=== PATIENT | male | born 1960 | race Caucasian/White ===

== ENCOUNTER → 2018-09-01 12:11 | Outpatient (CLI) | payer BC, SELFPAY ==
[2018-09-01 13:00] LABS: Add Manual Diff / Slide Review NO; Basophils Absolute Auto 0 /uL (0-100); Basophils Percent Auto 0.4 % (0-2); Eosinophils Absolute Auto 0 /uL (0-450); Eosinophils Percent Auto 0.9 % (2-4); Hematocrit 43.2 % (41-53); Hemoglobin 14.7 g/dL (13.5-17.5); Lymphocytes Absolute Auto 1200 /uL (1100-4500); Lymphocytes Percent Auto 25.1 % (25-40); Mean Corpuscular HGB Conc 34.1 % (30-36); Mean Corpuscular Hemoglobin 32.2 PG (26-34); Mean Corpuscular Volume 94.5 fL (80-100); Monocytes Absolute Auto 500 /uL (0-900); Neutrophils Absolute Auto 2900 /uL (1500-7000); Neutrophils Percent Auto 62.6 % (50-75); Platelet Count 201 X10^3/uL (150-400); Red Blood Cell Count 4.57 X10^6/uL (4.5-5.9); Red Cell Distribution Width 13.1 % (11.6-14.8); White Blood Cell Count 4.6 X10^3/uL (4.5-11.0)
[2018-09-01 13:18] LABS: Alanine Aminotransferase 35 IU/L (21-72); Albumin 4.5 g/dL (3.5-5.0); Albumin Globulin Ratio 1.6 (1.0-2.8); Alkaline Phosphatase 55 U/L (38-126); Aspartate Aminotransferase 46 IU/L (17-59); BUN Creatinine Ratio 16.3 (6-22); Bilirubin Total 0.7 mg/dL (0.2-1.3); Blood Urea Nitrogen 13 mg/dL (9-20); Calcium 9.7 mg/dL (8.4-10.2); Carbon Dioxide 25 mmol/L (22-32); Chloride 102 mmol/L (98-107); Cholesterol 264 mg/dL (140-199); Estimated Glomerular Filt Rate > 60.0 mL/min (>60); Globulin 2.9 g/dL (1.7-4.1); Glucose 97 mg/dL (80-110); HDL Cholesterol 66 mg/dL (40-60); HEMOLYSIS < 15 (0-50); LDL Cholesterol Calculated 182 mg/dL (<100); Potassium 4.5 mmol/L (3.4-5.1); Sodium 136 mmol/L (137-145); Total Protein 7.4 g/dL (6.3-8.2); Triglycerides 82 mg/dL (35-150)
[2018-09-01 13:34] LABS: Appearance Urine UA CLEAR; Bilirubin Urine UA NEGATIVE (NEGATIVE); Color Urine UA YELLOW; Glucose Urine UA NEGATIVE (Negative); Ketones Urine UA NEGATIVE (NEGATIVE); Leukocyte Esterase Urine UA NEGATIVE (NEGATIVE); Nitrite Urine UA NEGATIVE (Negative); Occult Blood Urine UA NEGATIVE (Negative); Protein Urine UA NEGATIVE (Negative); Urobilinogen Urine UA 0.2 E.U./dL (0.2); pH Urine UA 7.5 (4.5-8.0)
[2018-09-01 13:49] LABS: Thyroid Stimulating Hormone 2.44 uIU/mL (0.47-4.68)
== END ==
PROVIDERS: PCP Family Medicine; Visit Provider Family Medicine
DX: Z13.220 Encounter for screening for lipoid disorders (principal); Z13.29 Encounter for screening for other suspected endocrine disorder; Z51.81 Encounter for therapeutic drug level monitoring
CPT/HCPCS: 36415; 80053; 80061; 81003; 84153; 84443; 85025

== ENCOUNTER 2018-10-25 12:53 | Day surgery (SDC) | payer BC, SELFPAY ==
--- NOTE | 2018-10-25 | PATH_ITS ---
[facility] Accession Number: [id number] . 01 Material submitted: . PART A: colon - ASCENDING COLON POLYP X3 PART B: rectum - RECTAL POLYP . 02 Diagnosis: A. Ascending Colon, Polyps x3, Biopsies: Tubular adenoma in three of seven fragments. . B. Rectum, Polyp, Biopsy: Tubular adenoma. V/10/27/2018 . 02 Electronically signed: . Jazmyne Rose MD, Pathologist NPI- [id number] . 01 Gross description: . Part A: ASCENDING COLON POLYP X3: Received in formalin are multiple fragment(s) of russell, soft tissue measuring 0.1 x 0.1 x 0.1 cm to 0.5 x 0.3 x 0.3 cm which is entirely submitted and submitted entirely in 1 cassette(s). Part B: RECTAL POLYP: Received in formalin is 1 fragment(s) of russell, soft tissue measuring 0.3 x 0.3 x 0.2 cm which is entirely submitted and submitted entirely in 1 cassette(s) /DM /DM . 02 Pathologist provided ICD-10: D12.2, D12.8 . 02 CPT . 958739, 286233 Performed at: 01 [facility] [address] [facility], [place], [place] [id number] MD Braxton Mcdonald MD Phone: [phone] Performed at: 02 [facility] [address] [place], [place] [id number] MD Jazmyne Rose MD Phone: [phone]
--- NOTE | 2018-10-25 09:24 | P.HP_ITS ---
History of Present Illness Date Patient Seen: 10/25/18 Chief complaint: [id number] Narrative: 58-year-old male here for colon polyp surveillance. Last colonoscopy was performed in 2013 at [facility]. He currently has no active GI issues Patient History Family & Social History Tobacco & Substance use: Smoking Status Former smoker Meds Home Medications Medication Instructions Recorded Confirmed Type No Known Home Medications 10/25/18 10/25/18 History Allergies Allergy/AdvReac Type Severity Reaction Status Date / Time No Known Drug Allergies Allergy Verified 09/04/18 09:50 Review of Systems Review of Systems All systems reviewed & are unremarkable except as noted in HPI and below Exam Narrative Exam Narrative: General: Patient is well developed, not in apparent distress Cardiovascular: Regular rate and rhythm, no murmurs, rubs, or gallops; no evide nce of edema; no palpable abdominal aortic aneurysm Gastrointestinal: Normoactive bowel sounds, soft, nontender, nondistended, no rebound tenderness, no hepatosplenomegaly, no evidence of hernia Assessment & Plan Assessment & Plan narrative: 58-year-old male here for colon polyp surveillance Regarding the procedure(s), the risks and potential complications, benefits, and alternatives (including not doing the procedure) were discussed with the patient. The risks include but are not limited to bleeding, splenic injury, i nfection, perforation which may require surgical intervention, missed lesions, and adverse reactions to sedative medicines. After a question and answer period, the patient agreed to proceed with the procedure(s) and gives informed consent.
[2018-10-25 14:01] VITALS: BP 154/88; PULSE 77; RESP 16; TEMP 36.7; O2SAT 98; BMI 22.7
[2018-10-25] MEDS: SODIUM CHLORIDE 0.9% 1,000 ML 70 ML IV (14:20)
[2018-10-25] MEDS: MIDAZOLAM 5 MG/5 ML VIAL IV (14:46)
[2018-10-25] MEDS: fentaNYL 250 MCG/5 ML INJ IV (14:46)
--- NOTE | 2018-10-25 15:03 | P.OP.ENDO_ITS ---
Operative Date/Time/Diagnoses Date of procedure: 10/25/18 Procedure Notes Procedure in detail: Surgeon: Jeovanny [place] MD Procedure: Colonoscopy with polypectomy Preoperative diagnosis: Colon polyp surveillance Postoperative diagnosis: Colon polyps x4 status post polypectomy; divertic ulosis; grade 2 internal hemorrhoids Medications: Conscious sedation using 2 mg IV of Midazolam and 100 mcg IV of Fentanyl Preanesthesia Assessment An H and P was performed/updated and the Px?s ASA class is 1. The procedure was discussed in detail with the patient. The potential risks and complications including infection, bleeding, missed lesions, perforation, need for surgery in case of perforation, prolonged hospital stay, and were explained. A brief question and answer period was allotted and once all questions were answered, informed consent was obtained. The patient was brought back to the procedure room and placed on standard monitoring. The patient?s vital signs were monitored continuously throughout the entire procedure. Prior to starting, a timeout was performed to confirm the patient?s identity, allergies, medications, and procedure. Procedure in detail The patient was placed in left lateral decubitus position and once adequate sedation was obtained a DYANA was performed. The digital rectal examination did not reveal any palpable lesions. The tip of the colonoscope was placed in the anal canal and advanced without difficulty all the way to the cecum which was identified by the appendiceal orifice and the ileocecal valve. Careful examination of all chapa of the colon was performed with irrigation of any residual stool. In the ascending colon there was note of 3 sessile polyps measuring 2-3 mm in size. These were removed by means of cold Jumbo forceps. Resection and retrieval was complete with minimal bleeding. There was note of scattered medium-sized diverticula in the ascending colon and transverse colon. There was note of multiple medium-size diverticula in the sigmoid colon. In the rectum, there was note of a 2 mm sessile polyp which was removed by means of cold Jumbo forceps. Resection and retrieval was complete with minimal bleeding. Retroflexion was performed in the rectum which revealed grade 2 internal hemorrhoids. The patient tolerated the procedure well and will be brought back to the recovery area to be discharged once criteria are met. The prep was judged to be good and adequate to identify polyps less than 5 mm. The withdrawal time was 9 minutes. The total physician intraservice time was 15 minutes. Complications There were no complications and estimated blood loss was minimal. Recommendations: Resume previous diet Follow up pathology results Repeat colonoscopy in 3 or 5 years depending on pathology results An emergency contact number was given to the patient for any complications related to the procedure
[2018-10-25 15:10] VITALS: BP 127/78; PULSE 69; RESP 16; TEMP 36.8; O2SAT 98
== END 2018-10-25 15:30 | disposition home or self-care (01) ==
PROVIDERS: PCP Family Medicine; Visit Provider Internal Medicine Gastroenterology
PROC: 0DJD8ZZ Inspection of Lower Intestinal Tract, Via Natural or Artificial Opening Endoscopic (ICD-10-PCS; CPT 45378; principal; 2018-10-25 14:30)
DX: Z86.010 Personal history of colon polyps (principal); K57.30 Diverticulosis of large intestine without perforation or abscess without bleeding; K64.1 Second degree hemorrhoids; D12.2 Benign neoplasm of ascending colon; D12.8 Benign neoplasm of rectum
CPT/HCPCS: 45380; J2250; J3010

== ENCOUNTER → 2019-04-24 12:48 | Outpatient (CLI) | payer BC, SELFPAY ==
[2019-04-24 13:52] LABS: Prostate Specific Antigen 3.56 ng/mL (0.10-4.00)
== END ==
PROVIDERS: PCP Family Medicine; Visit Provider Family Medicine
DX: R97.20 Elevated prostate specific antigen [PSA] (principal)
CPT/HCPCS: 36415; 84153

== ENCOUNTER → 2019-08-20 12:58 | Outpatient (CLI) | payer BC, SELFPAY ==
[2019-08-20 13:41] LABS: Cholesterol 255 mg/dL (140-199); Glucose 84 mg/dL (80-110); HDL Cholesterol 51 mg/dL (40-60); LDL Cholesterol Calculated 184 mg/dL (<100); Triglycerides 102 mg/dL (35-150)
[2019-08-20 14:11] LABS: Prostate Specific Antigen 4.39 ng/mL (0.10-4.00)
== END ==
PROVIDERS: PCP Family Medicine; Referring Provider Family Medicine; Visit Provider Family Medicine
DX: Z13.1 Encounter for screening for diabetes mellitus (principal); Z13.220 Encounter for screening for lipoid disorders; C61 Malignant neoplasm of prostate
CPT/HCPCS: 36415; 80061; 82947; 84153

== ENCOUNTER → 2019-10-09 06:56 | Outpatient (CLI) | payer BC, SELFPAY ==
[2019-10-09 09:34] LABS: Prostate Specific Antigen 3.96 ng/mL (0.10-4.00)
== END ==
PROVIDERS: PCP Family Medicine; Referring Provider Student in an Organized Health Care Education/Training Program; Visit Provider Student in an Organized Health Care Education/Training Program
DX: C61 Malignant neoplasm of prostate (principal); R97.20 Elevated prostate specific antigen [PSA]
CPT/HCPCS: 36415; 84153

== ENCOUNTER → 2020-02-01 07:56 | Outpatient (CLI) | payer BC, SELFPAY ==
[2020-02-01 09:05] LABS: Cholesterol 188 mg/dL (140-199); HDL Cholesterol 67 mg/dL (40-60); LDL Cholesterol Calculated 96 mg/dL (<100); Triglycerides 125 mg/dL (35-150)
[2020-02-01 09:31] LABS: Prostate Specific Antigen 3.93 ng/mL (0.10-4.00)
== END ==
PROVIDERS: PCP Family Medicine; Referring Provider Urology; Visit Provider Urology
DX: C61 Malignant neoplasm of prostate (principal); E78.5 Hyperlipidemia, unspecified
CPT/HCPCS: 36415; 80061; 84153

== ENCOUNTER 2020-05-01 17:46 | Emergency (ER) | payer BC, SELFPAY ==
[2020-05-01 17:55] VITALS: BP 129/75; PULSE 93; RESP 17; TEMP 36.6; O2SAT 96; BMI 21.1
[2020-05-01] MEDS: LIDOCAINE 2% (UROJET) 5 ML GEL TOP (18:11)
--- NOTE | 2020-05-01 18:19 | ED_ITS ---
HPI - Male Genitourinary General Chief complaint: Urogenital-Male Stated complaint: catheter removed, has retention now Time Seen by Provider: 05/01/20 17:53 Source: patient Mode of arrival: Ambulatory Limitations: no limitations History of Present Illness HPI Narrative: 60-year-old male former smoker with a history of prostate cancer presents with his in the chief complaint inability to urinate over the cour se of the day. He recently had a radical prostatectomy and his Pope catheter was removed in the urology office earlier today. Over the course of the day he has developed inability to urinate and presents with suprapubic tenderness. He has had no fever chills and denies any nausea, vomiting or back pain. He is otherwise well and free of complaint MD Complaint: other Onset (ago): hour(s) Duration: constant Location: abdomen (suprapubic) Severity: moderate Relieving factors: urination Exacerbating factors: none Context: recent surgery Associated symptoms: Reports denies other symptoms Related Data Home Medications Medication Instructions Recorded Confirmed No Known Home Medications 10/25/18 11/09/19 Allergies Allergy/AdvReac Type Severity Reaction Status Date / Time No Known Drug Allergies Allergy Verified 05/01/20 18:04 Review of Systems Constitutional Constitutional: Denies chills, Denies fatigue, Denies fever(s), Denies frequent falls, Denies lethargy and Denies weakness Eyes Eyes: Denies change in vision, Denies eye discharge, Denies irritation and Denies loss of vision ENT Ears, Nose, Mouth, and Throat: Denies change in voice, Denies dizziness, Denies neck pain, Denies sore throat and Denies throat swelling Cardiovascular Cardiovascular: Denies chest pain, Denies irregular heart rhythm, Denies lightheadedness, Denies palpitations, Denies dyspnea, Denies dyspnea on exertion and Denies orthopnea Respiratory Respiratory: Denies cough, Denies dyspnea, Denies dyspnea on exertion and Denies wheezing Gastrointestinal Gastrointestinal: Denies abdominal pain, Denies change in bowel habits, Denies diarrhea, Denies nausea and Denies vomiting Genitourinary Genitourinary: Reports oliguria Musculoskeletal Musculoskeletal: Denies neck pain and Denies numbness Integumentary/Breasts Skin/Breast: Denies pruritus, Denies erythema, Denies rash and Denies wounds Neurologic Neurologic: Denies behavioral changes, Denies confusion, Denies dizziness, Denies frequent falls, Denies loss of vision, Denies numbness and Denies weakness Psychiatric Psychiatric: Denies anxiety, Denies behavioral changes, Denies confusion, Denies depression, Denies homicidal ideation and Denies suicidal ideation Endocrine Endocrine: Denies fatigue, Denies flushing and Denies palpitations Hematologic/Lymphatic Hematologic/Lymphatic: Denies easy bruising Allergic/Immunologic Allergic/Immunologic: Denies urticaria, Denies throat swelling and Denies wheezing Patient History Surgical History Status post hernia repair Family History Mother Alzheimer's dementia Grandmother Alzheimer's dementia Social History household members: spouse Smoking Status: Former smoker Smoking Status: Former smoker alcohol intake frequency: holidays/special occasions only Substance Use Type: does not use Exam Narrative Exam Narrative: GEN: AOx3 and in mild distress EYES: Pupils are equal, round, and reactive to light and accommodation. Extraoccular muscles are intact bilaterally. There is no subconjunctival hemorrhage or exudate. CHEST: Lungs are clear to auscultation bilaterally and free of wheezes, rales, or rhonchi. Heart rate is regular rhythm, there are no murmurs, clicks, rubs, or gallops. There is no chest wall tenderness. ABD: Abdomen is soft and mildly tender in the suprapubic region.. There is no guarding or rebound. Bowel sounds are normal in all 4 quadrants. There is no mass or organomegaly. EXT: Full painless ROM of all extremities with no loss of sensation or strength. SKIN: Warm, pink, and dry. No erythema or rash Initial Vital Signs Initial Vital Signs: Vital Signs Temperature 97.8 F 05/01/20 17:55 Pulse Rate 93 H 05/01/20 17:55 Respiratory Rate 17 05/01/20 17:55 Blood Pressure 129/75 05/01/20 17:55 Pulse Oximetry 96 05/01/20 17:55 Course Course Course Narrative: Pope catheter placed by nursing and patient has production of yellow urine and and near immediate, and complete resolution of symptoms Orders Ordered: Discontinued Medications Lidocaine HCl (Lidocaine 2% (Urojet) 5 Ml Gel) 5 ml TOP NOW ONE Stop: 05/01/20 18:07 Last Admin: 05/01/20 18:11 Dose: 5 ml Documented by: CLAUDIA Vital Signs Vital signs: Vital Signs - 8 hr 05/01/20 17:55 05/01/20 18:49 Temperature 97.8 F Pulse Rate 93 H 81 Respiratory Rate 17 18 Blood Pressure 129/75 108/68 Pulse Oximetry 96 97 Discharge Plan Departure Patient Disposition: Home Clinical Impression: Acute retention of urine Instructions: DI for Urinary Retention in Men Activity Restrictions/Additional Instructions: *You have been diagnosed with [acute urinary retention] *What to do: * continue to take medications as directed *Follow up with your urologist, call them in the morning to establish follow-up appointment *Return to ER if you should have any new, worsening or concerning symptoms, such as [pain, fever > 101F, worsening symptoms, or other bothersome symptoms] Prescriptions: No Action No Known Home Medications RF: 0 Referrals: Michelle Foley MD [Primary Care Provider] -
[2020-05-01 18:49] VITALS: BP 108/68; PULSE 81; RESP 18; O2SAT 97
== END 2020-05-01 18:50 | disposition home or self-care (01) ==
PROVIDERS: Emergency Provider Emergency Medicine; PCP Family Medicine
DX: R33.8 Other retention of urine (principal); C61 Malignant neoplasm of prostate
CPT/HCPCS: 51798; 99283

== ENCOUNTER 2020-05-07 18:12 | Emergency (ER) | payer BC, SELFPAY ==
[2020-05-07 18:22] VITALS: BP 133/76; PULSE 96; RESP 17; TEMP 36.3; O2SAT 98; BMI 21.1
[2020-05-07] MEDS: LIDOCAINE 2% (UROJET) 5 ML GEL TOP (19:07)
--- NOTE | 2020-05-07 19:38 | ED_ITS ---
HPI - General Adult General Chief complaint: Abdominal Pain Stated complaint: urinary retention Time Seen by Provider: 05/07/20 19:10 Source: patient Mode of arrival: Ambulatory Limitations: no limitations History of Present Illness HPI narrative: Patient is a 60-year-old male who 2 weeks ago underwent a prostate removal. Subsequently had urinary retention requiring a Pope catheter. The catheter was removed and subsequently had another episode of urinary retention requiring a another catheter. The catheter was removed this morning by his urologist. Patient was able to urinate 2 times today without problems but then started having problems with urinating and abdominal distension. Related Data Home Medications Medication Instructions Recorded Confirmed ciprofloxacin HCl [Cipro] 500 mg PO BID 05/07/20 05/07/20 Allergies Allergy/AdvReac Type Severity Reaction Status Date / Time No Known Drug Allergies Allergy Verified 05/07/20 18:30 Review of Systems Constitutional Constitutional: Denies fever(s) Gastrointestinal Gastrointestinal: Reports abdominal pain Genitourinary Genitourinary: Reports oliguria and Reports difficulty urinating Integumentary/Breasts Skin/Breast: Denies rash Hematologic/Lymphatic Hematologic/Lymphatic: Denies easy bleeding and Denies easy bruising Patient History Surgical History Status post hernia repair Family History Mother Alzheimer's dementia Grandmother Alzheimer's dementia Social History household members: spouse Smoking Status: Former smoker Smoking Status: Former smoker alcohol intake frequency: holidays/special occasions only Substance Use Type: does not use Exam Initial Vital Signs Initial Vital Signs: Vital Signs Temperature 97.4 F L 05/07/20 18:22 Pulse Rate 96 H 05/07/20 18:22 Respiratory Rate 17 05/07/20 18:22 Blood Pressure 133/76 05/07/20 18:22 Pulse Oximetry 98 05/07/20 18:22 Const General: cooperative and healthy appearing Resp Effort & Inspection: normal respiratory effort Cardio Rate: regular rate Other: Pope catheter in place Neuro General: patient alert and patient awake Extrem General: normal to inspection Psych Appearance: grossly normal and well kempt Course Orders Ordered: Discontinued Medications Lidocaine HCl (Lidocaine 2% (Urojet) 5 Ml Gel) 5 ml TOP NOW ONE Stop: 05/07/20 19:06 Last Admin: 05/07/20 19:07 Dose: 5 ml Documented by: VIKI Vital Signs Vital signs: Vital Signs - 8 hr 05/07/20 18:22 05/07/20 20:01 Temperature 97.4 F L Pulse Rate 96 H 100 H Respiratory Rate 17 16 Blood Pressure 133/76 108/74 Pulse Oximetry 98 96 Medical Decision Making MDM Narrative Medical decision making narrative: Patient had a bladder scan and Pope catheter placed prior to my evaluation. Had approximately 1 L of urine help after the catheter was replaced without problems. Plan will be is to discharge him home with a catheter in place and having contact his urologist tomorrow for follow- up. He was given return precautions. He expressed understanding and agreement. Discharge Plan Departure Patient Disposition: Home Clinical Impression: Acute urinary retention Instructions: How to Care for Your Pope Catheter -- Male Activity Restrictions/Additional Instructions: Recommend that tomorrow you contact your urologist for a follow-up. Return to the emergency department for any new or worsening symptoms Prescriptions: No Action ciprofloxacin HCl [Cipro] 500 mg Tablet 500 mg PO BID RF: 0 Referrals: Michelle Foley MD [Primary Care Provider] -
[2020-05-07 20:01] VITALS: BP 108/74; PULSE 100; RESP 16; O2SAT 96
== END 2020-05-07 20:02 | disposition home or self-care (01) ==
PROVIDERS: Emergency Provider Emergency Medicine; PCP Family Medicine
DX: R33.8 Other retention of urine (principal); Z90.79 Acquired absence of other genital organ(s)
CPT/HCPCS: 51701; 51798; 99282; 99283

== ENCOUNTER → 2020-06-09 09:54 | Outpatient (CLI) | payer BC, SELFPAY ==
[2020-06-09 11:45] LABS: Prostate Specific Antigen < 0.064 ng/mL (0.10-4.00)
== END ==
PROVIDERS: PCP Family Medicine; Referring Provider Student in an Organized Health Care Education/Training Program; Visit Provider Student in an Organized Health Care Education/Training Program
DX: C61 Malignant neoplasm of prostate (principal)
CPT/HCPCS: 36415; 84153

== ENCOUNTER → 2020-08-27 07:58 | Outpatient (CLI) | payer OTHER, SELFPAY ==
[2020-08-27] MEDS: COVID-19 VACC #1, MRNA(MOD) 100 MCG/0.5 ML VIAL IM (08:13)
== END ==
PROVIDERS: PCP Family Medicine; Visit Provider Internal Medicine
DX: Z23 Encounter for immunization (principal)
CPT/HCPCS: 0011A; 91301

== ENCOUNTER → 2020-09-24 10:57 | Outpatient (CLI) | payer OTHER, SELFPAY ==
[2020-09-24] MEDS: COVID-19 VACC #2, MRNA(MOD) 100 MCG/0.5 ML VIAL IM (11:04)
== END ==
PROVIDERS: PCP Family Medicine; Visit Provider Internal Medicine
DX: Z23 Encounter for immunization (principal)
CPT/HCPCS: 0012A; 91301

== ENCOUNTER → 2020-09-24 11:13 | Outpatient (CLI) | payer OTHER, SELFPAY ==
[2020-09-24 12:59] LABS: Prostate Specific Antigen < 0.064 ng/mL (0.10-4.00)
== END ==
PROVIDERS: PCP Family Medicine; Referring Provider Student in an Organized Health Care Education/Training Program; Visit Provider Student in an Organized Health Care Education/Training Program
DX: C61 Malignant neoplasm of prostate (principal)
CPT/HCPCS: 36415; 84153

== ENCOUNTER → 2021-09-02 11:02 | Outpatient (CLI) | payer OTHER, SELFPAY ==
[2021-09-02 12:16] LABS: Cholesterol 308 mg/dL (140-199); HDL Cholesterol 49 mg/dL (40-60); LDL Cholesterol Calculated 233 mg/dL (<100); Triglycerides 129 mg/dL (35-150)
[2021-09-02 12:47] LABS: Prostate Specific Antigen < 0.064 ng/mL (0.10-4.00)
== END ==
PROVIDERS: PCP Family Medicine; Referring Provider Family Medicine; Visit Provider Family Medicine
DX: C61 Malignant neoplasm of prostate (principal); E78.5 Hyperlipidemia, unspecified
CPT/HCPCS: 36415; 80061; 84153

== ENCOUNTER → 2022-09-20 10:05 | Outpatient (CLI) | payer OTHER, SELFPAY ==
[2022-09-20 10:57] LABS: Cholesterol 242 mg/dL (140-199); Glucose 83 mg/dL (80-110); HDL Cholesterol 53 mg/dL (40-60); LDL Cholesterol Calculated 174 mg/dL (<100); Triglycerides 73 mg/dL (35-150)
== END ==
PROVIDERS: PCP Family Medicine; Referring Provider Family Medicine; Visit Provider Family Medicine
DX: E78.5 Hyperlipidemia, unspecified (principal); Z00.00 Encounter for general adult medical examination without abnormal findings; Z79.899 Other long term (current) drug therapy
CPT/HCPCS: 36415; 80061; 82947

== ENCOUNTER → 2023-04-18 11:06 | Outpatient (CLI) | payer MEDICARE, SELFPAY ==
[2023-04-18 12:33] LABS: Prostate Specific Antigen 0.124 ng/mL (0.10-4.00)
== END ==
PROVIDERS: PCP Family Medicine; Referring Provider Family Medicine; Visit Provider Family Medicine
DX: C61 Malignant neoplasm of prostate (principal)
CPT/HCPCS: 36415; 84153

== ENCOUNTER → 2023-05-20 08:50 | Outpatient (CLI) | payer MEDICARE, SELFPAY ==
[2023-05-20 10:57] LABS: Prostate Specific Antigen 0.162 ng/mL (0.10-4.00)
== END ==
PROVIDERS: PCP Family Medicine; Referring Provider Family Medicine; Visit Provider Family Medicine
DX: C61 Malignant neoplasm of prostate (principal)
CPT/HCPCS: 36415; 84153

== ENCOUNTER → 2023-08-03 09:19 | Outpatient (CLI) | payer MEDICARE, SELFPAY ==
[2023-08-03 11:00] LABS: Add Manual Diff / Slide Review NO; Basophils Absolute Auto 0 /uL (0-100); Basophils Percent Auto 0.7 % (0-2); Eosinophils Absolute Auto 100 /uL (0-450); Eosinophils Percent Auto 2.8 % (2-4); Hematocrit 43.6 % (41-53); Hemoglobin 15.1 g/dL (13.5-17.5); Lymphocytes Absolute Auto 1500 /uL (1100-4500); Lymphocytes Percent Auto 28.6 % (25-40); Mean Corpuscular HGB Conc 34.6 % (30-36); Mean Corpuscular Hemoglobin 31.8 PG (26-34); Mean Corpuscular Volume 91.7 fL (80-100); Monocytes Absolute Auto 500 /uL (0-900); Monocytes Percent Auto 10.1 % (3-14); Neutrophils Absolute Auto 3000 /uL (1500-7000); Neutrophils Percent Auto 57.8 % (50-75); Platelet Count 213 X10^3/uL (150-400); Red Blood Cell Count 4.75 X10^6/uL (4.5-5.9); White Blood Cell Count 5.2 X10^3/uL (4.5-11.0)
[2023-08-03 11:43] LABS: Cholesterol 269 mg/dL (140-199); HDL Cholesterol 34 mg/dL (40-60); LDL Cholesterol Calculated 183 mg/dL (<100); Triglycerides 262 mg/dL (35-150)
[2023-08-03 11:43] LABS: Alanine Aminotransferase 21 IU/L (<50); Albumin Globulin Ratio 1.4 (1.0-2.8); Alkaline Phosphatase 62 U/L (38-126); Aspartate Aminotransferase 34 IU/L (17-59); BUN Creatinine Ratio 14.8 (6-22); Bilirubin Total 0.7 mg/dL (0.2-1.3); Blood Urea Nitrogen 13 mg/dL (9-20); Calcium 9.1 mg/dL (8.4-10.2); Carbon Dioxide 25 mmol/L (22-32); Chloride 109 mmol/L (98-107); Estimated Glomerular Filt Rate > 60 mL/min (>60); Globulin 2.9 g/dL (1.7-4.1); Glucose 103 mg/dL (80-110); HEMOLYSIS < 15 (0-50); Potassium 4.4 mmol/L (3.4-5.1); Sodium 139 mmol/L (137-145); Total Protein 6.9 g/dL (6.3-8.2)
[2023-08-04 14:09] LABS: PSA Ultrasensitive 0.115 ng/mL (0.000-4.000)
== END ==
LOC: LAB 09:23
PROVIDERS: PCP Family Medicine; Referring Provider Internal Medicine Hematology & Oncology; Visit Provider Family Medicine
DX: E78.5 Hyperlipidemia, unspecified (principal); C61 Malignant neoplasm of prostate
CPT/HCPCS: 36415; 80053; 80061; 84153; 85025

== ENCOUNTER → 2023-09-29 09:19 | Outpatient (CLI) | payer MEDICARE, SELFPAY ==
[2023-09-30 08:06] LABS: PSA Ultrasensitive 0.151 ng/mL (0.000-4.000)
== END ==
LOC: LAB 09:21
PROVIDERS: PCP Family Medicine; Referring Provider Radiology Radiation Oncology; Visit Provider Radiology Radiation Oncology
DX: C61 Malignant neoplasm of prostate (principal)
CPT/HCPCS: 36415; 84153

== ENCOUNTER → 2023-11-03 09:30 | Outpatient (CLI) | payer MEDICARE, SELFPAY ==
[2023-11-03 10:56] LABS: Add Manual Diff / Slide Review NO; Basophils Absolute Auto 0 /uL (0-100); Basophils Percent Auto 0.5 % (0-2); Eosinophils Absolute Auto 100 /uL (0-450); Eosinophils Percent Auto 2.2 % (2-4); Hematocrit 44.3 % (41-53); Hemoglobin 15.3 g/dL (13.5-17.5); Lymphocytes Absolute Auto 600 /uL (1100-4500); Lymphocytes Percent Auto 16.8 % (25-40); Mean Corpuscular HGB Conc 34.6 % (30-36); Mean Corpuscular Hemoglobin 31.1 PG (26-34); Monocytes Absolute Auto 400 /uL (0-900); Monocytes Percent Auto 12.6 % (3-14); Neutrophils Absolute Auto 2300 /uL (1500-7000); Neutrophils Percent Auto 67.9 % (50-75); Platelet Count 202 X10^3/uL (150-400); Red Blood Cell Count 4.92 X10^6/uL (4.5-5.9); Red Cell Distribution Width 15.4 % (11.6-14.8); White Blood Cell Count 3.4 X10^3/uL (4.5-11.0)
[2023-11-03 11:16] LABS: Alanine Aminotransferase 14 IU/L (<50); Albumin 4.3 g/dL (3.5-5.0); Albumin Globulin Ratio 1.6 (1.0-2.8); Alkaline Phosphatase 83 U/L (38-126); Aspartate Aminotransferase 32 IU/L (17-59); BUN Creatinine Ratio 16.7 (6-22); Bilirubin Total 0.8 mg/dL (0.2-1.3); Blood Urea Nitrogen 15 mg/dL (9-20); Calcium 8.8 mg/dL (8.4-10.2); Carbon Dioxide 21 mmol/L (22-32); Chloride 108 mmol/L (98-107); Estimated Glomerular Filt Rate > 60 mL/min (>60); Globulin 2.7 g/dL (1.7-4.1); Glucose 105 mg/dL (80-110); HEMOLYSIS < 15 (0-50); Potassium 4.2 mmol/L (3.4-5.1); Sodium 138 mmol/L (137-145)
[2023-11-03 11:44] LABS: Prostate Specific Antigen 0.093 ng/mL (0.10-4.00)
== END ==
PROVIDERS: PCP Family Medicine; Referring Provider Internal Medicine Hematology & Oncology; Visit Provider Internal Medicine Hematology & Oncology
DX: C61 Malignant neoplasm of prostate (principal)
CPT/HCPCS: 36415; 80053; 84153; 85025

== ENCOUNTER → 2024-01-05 | Outpatient (CLI) | payer MEDICARE, SELFPAY ==
--- NOTE | 2024-01-16 21:17 | DI.NM.S_ITS ---
DATE OF SERVICE: 01/05/2024 PROCEDURE PERFORMED: Exercise treadmill stress and rest myocardial perfusion imaging with gating to assess ejection fraction and regional wall motion. ORDERING PROVIDER: Jerry Charles MD INDICATIONS: The patient is a 63-year-old male with hyperlipidemia and coronary calcification on PET scanning. CARDIAC STRESS: The patient was able to exercise for 12 minutes on a standard Bryn protocol, suggesting excellent exercise capacity with an JEAN of -47%, achieving 12.8 METS. He had a normal heart rate and blood pressure response to exercise, achieving a maximum heart rate of 171 BMP (110% of his predicted maximum). He had no chest discomfort or other anginal symptoms. His resting ECG shows sinus rhythm with normal ST segments and voltage criteria for possible LVH. With stress, he develops progressive down-sloping ST depression at peak exercise of 3-4 mm in the inferolateral leads that persists several minutes into recovery. There were rare PVCs but no complex ectopy. At 11 minutes of exercise at a heart rate of 170 BPM, 26.7 millicuries of technetium-99m Myoview was injected and imaged 15 minutes later using a gated SPECT acquisition protocol. Eleven days later, while at rest, he was injected with an additional 25 millicuries of technetium-99m Myoview and was imaged 15 minutes later, again using a gated SPECT acquisition protocol. FINDINGS: 1. Raw data. There is fairly good myocardial tracer uptake but some evidence for diaphragmatic attenuation. The lung/heart ratio is normal at 0.19 with a normal TID ratio of 1.16. 2. Quantitated gated SPECT: Post-stress ejection fraction is estimated at 74% without any focal wall motion abnormality and specifically the inferior wall has normal contractility. The resting ejection fraction is estimated at 70% with a normal resting end-diastolic volume of 91 mL. 3. Myocardial perfusion imaging: Post-stress supine images show a fairly normal myocardial perfusion pattern although with a subtle inferior defect in a pattern consistent with diaphragmatic attenuation, supported by its complete resolution on the prone images, revealing a normal, homogeneous perfusion pattern. The resting images show an identical perfusion pattern to the post-stress images with no significant improvement in the inferior wall defect. IMPRESSION: 1. Probable normal, low risk myocardial perfusion study. 2. Subtle fixed inferior defect that resolves on prone imaging, most consistent with diaphragmatic attenuation. there is no compelling evidence for any myocardial ischemia or infarction. 3. Normal left ventricular systolic function without any focal wall motion abnormality and normal left ventricular volumes. 4. Excellent exercise capacity without angina although with significant ST depression at peak exercise, concerning for ischemia, yet given the perfusion data, this is likely a false positive and possibly due to underlying hypertension. Clinical correlation is recommended. Kingsley Waldrop - RS/fn/AY doc#: [id number]/job#: [id number] dd: 01/16/2024 16:52:00 dt: 01/16/2024 20:40:00 DICTATING MD/COPIES TO: Ej Hatch MD; Jerry Charles MD COPIES MNE: PA;
== END ==
LOC: NUCM 07:17
PROVIDERS: PCP Family Medicine; Referring Provider Internal Medicine Cardiovascular Disease; Visit Provider Internal Medicine Cardiovascular Disease
DX: I25.10 Atherosclerotic heart disease of native coronary artery without angina pectoris (principal); I25.84 Coronary atherosclerosis due to calcified coronary lesion; E78.2 Mixed hyperlipidemia
CPT/HCPCS: 78452; 93017; A9502

== ENCOUNTER → 2024-01-24 07:53 | Outpatient (CLI) | payer MEDICARE, SELFPAY | PROVIDERS: PCP Family Medicine; Referring Provider Radiology Radiation Oncology; Visit Provider Radiology Radiation Oncology | DX: C61 Malignant neoplasm of prostate (principal) | CPT/HCPCS: 36415; 84153 ==

== ENCOUNTER → 2024-03-09 08:19 | Outpatient (CLI) | payer MEDICARE, SELFPAY ==
[2024-03-09 10:36] LABS: Alanine Aminotransferase 15 IU/L (<50); Albumin 4.4 g/dL (3.5-5.0); Albumin Globulin Ratio 1.6 (1.0-2.8); Alkaline Phosphatase 62 U/L (38-126); Aspartate Aminotransferase 34 IU/L (17-59); BUN Creatinine Ratio 19.4 (6-22); Bilirubin Total 0.5 mg/dL (0.2-1.3); Blood Urea Nitrogen 18 mg/dL (9-20); Calcium 9.4 mg/dL (8.4-10.2); Carbon Dioxide 21 mmol/L (22-32); Chloride 105 mmol/L (98-107); Cholesterol 199 mg/dL (140-199); Estimated Glomerular Filt Rate > 60 mL/min (>60); Globulin 2.7 g/dL (1.7-4.1); Glucose 99 mg/dL (80-110); HDL Cholesterol 72 mg/dL (40-60); HEMOLYSIS < 15 (0-50); LDL Cholesterol Calculated 112 mg/dL (<100); Potassium 4.4 mmol/L (3.4-5.1); Sodium 137 mmol/L (137-145); Total Protein 7.1 g/dL (6.3-8.2); Triglycerides 74 mg/dL (35-150)
[2024-03-10 03:14] LABS: Apolipoprotein B 88 mg/dL (<90)
== END ==
PROVIDERS: PCP Family Medicine; Referring Provider Internal Medicine Cardiovascular Disease; Visit Provider Internal Medicine Cardiovascular Disease
DX: E78.2 Mixed hyperlipidemia (principal); I25.10 Atherosclerotic heart disease of native coronary artery without angina pectoris; I25.84 Coronary atherosclerosis due to calcified coronary lesion
CPT/HCPCS: 36415; 80053; 80061; 82172; 83695

== ENCOUNTER → 2024-08-08 08:28 | Outpatient (CLI) | payer MEDICARE, SELFPAY ==
[2024-08-08 09:53] LABS: Prostate Specific Antigen < 0.064 ng/mL (0.10-4.00)
== END ==
PROVIDERS: PCP Family Medicine; Referring Provider Radiology Radiation Oncology; Visit Provider Radiology Radiation Oncology
DX: C61 Malignant neoplasm of prostate (principal)
CPT/HCPCS: 36415; 84153

== ENCOUNTER → 2025-01-31 09:51 | Outpatient (CLI) | payer MEDICARE, SELFPAY ==
[2025-01-31 10:40] LABS: Alanine Aminotransferase 20 IU/L (<50); Albumin 4.4 g/dL (3.5-5.0); Albumin Globulin Ratio 1.7 (1.0-2.8); Alkaline Phosphatase 67 U/L (38-126); Blood Urea Nitrogen 17 mg/dL (9-20); Calcium 9.3 mg/dL (8.4-10.2); Carbon Dioxide 25 mmol/L (22-32); Chloride 103 mmol/L (98-107); Cholesterol 218 mg/dL (140-199); Estimated Glomerular Filt Rate > 60 mL/min (>60); Globulin 2.6 g/dL (1.7-4.1); Glucose 106 mg/dL (70-99); HDL Cholesterol 64 mg/dL (40-60); HEMOLYSIS < 15 (0-50); Potassium 4.7 mmol/L (3.4-5.1); Sodium 137 mmol/L (137-145); Total Protein 7.0 g/dL (6.3-8.2); Triglycerides 108 mg/dL (35-150)
== END ==
PROVIDERS: Family Medicine; PCP Family Medicine; Referring Provider Family Medicine; Visit Provider Family Medicine
DX: Z12.5 Encounter for screening for malignant neoplasm of prostate (principal); I10 Essential (primary) hypertension
CPT/HCPCS: 36415; 80053; 80061; 82043; 82570; G0103

== ENCOUNTER → 2025-03-26 12:22 | Outpatient (CLI) | payer MEDICARE, SELFPAY ==
--- NOTE | 2025-03-26 12:23 | DI.RAD.S_ITS ---
PROCEDURE: XR HIP W PEL IF DONE LT 2V INDICATIONS: hip pain TECHNIQUE: AP pelvis with lateral view(s) of the left hip(s). COMPARISON: None. FINDINGS: Bones: No fractures or dislocations. Pelvic ring appears intact. No suspicious bony lesions. Mild bilateral hip osteoarthritis with chondrocalcinosis. Degenerative changes of the sacroiliac and lower lumbar spine. Soft tissues: The visualized bowel gas pattern is normal. No suspicious soft tissue calcifications. IMPRESSION: Degenerative changes. Dictated by: Clint Rocha M.D. on 03/26/2025 at 13:58 Approved by: Clint Rocha M.D. on 03/26/2025 at 13:59
== END ==
PROVIDERS: PCP Family Medicine; Referring Provider Family Medicine; Visit Provider Family Medicine
DX: M16.0 Bilateral primary osteoarthritis of hip (principal); M11.252 Other chondrocalcinosis, left hip; M47.816 Spondylosis without myelopathy or radiculopathy, lumbar region; M11.251 Other chondrocalcinosis, right hip; M25.559 Pain in unspecified hip
CPT/HCPCS: 73502

== ENCOUNTER → 2025-05-21 11:23 | Outpatient (CLI) | payer MEDICARE, SELFPAY | PROVIDERS: PCP Family Medicine; Referring Provider Radiology Radiation Oncology; Visit Provider Radiology Radiation Oncology | DX: C61 Malignant neoplasm of prostate (principal) | CPT/HCPCS: 36415; 84153 ==